=== PATIENT | male | born 1985 | race American Indian/Alaskan Native ===

== ENCOUNTER 2018-02-14 15:43 | Emergency (ER) | payer SELFPAY ==
[2018-02-14 15:52] VITALS: BP 137/81
[2018-02-14] MEDS ORDERED: TORADOL IM ONE (16:26)
[2018-02-14] MEDS ORDERED: ULTRAM PO ONE (16:26)
[2018-02-14] MEDS ORDERED: NORCO 5/325 PO ONE (16:28)
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
[2018-02-14 17:08] LABS: Bilirubin,Urine NEG (Negative); Blood,Urine NEG (Negative); Color,Urine Yellow (Yellow); Mucus,Urine FEW /HPF; Protein,Urine <15 mg/dL mg/dL (Negative); Urobilinogen,Urine < 2.0 mg/dL (<2.0)
[2018-02-14] MEDS ORDERED: ZITHROMAX PO ONE (17:15)
--- NOTE | 2018-02-14 17:30 | XRay Report ---
FINAL REPORT EXAM: XR CHEST ROUTINE 2V HISTORY: posterior left thoracic pain, cough TECHNIQUE: Frontal and lateral chest radiographs. PRIORS: None. FINDINGS: The cardiomediastinal silhouette is normal. A focal nodular opacity projects in the left lower lobe just above the left hemidiaphragm measuring 4.0 x 1.6 centimeters. Streaky linear opacities are seen radiating from this area. No pleural effusion. No pneumothorax. No acute osseous abnormality. IMPRESSION: Focal nodular opacity in the left lower lobe may represent focal pneumonia or pulmonary nodule. Recommend further evaluation with chest CT.
[2018-02-14] MEDS ORDERED: ROCEPHIN/NS 1 GM/50 ML 1 GM/50 ML BAG IV ONE (18:00)
[2018-02-14 18:28] LABS: Basophils # (Auto) 0.1 K/mm3 (0.0-0.1); Basophils % (Auto) 0.7 % (0.0-1.8); Eosinophils # (Auto) 0.5 K/mm3 (0.0-0.4); Eosinophils % (Auto) 5.9 % (0.0-4.3); Hematocrit 45.2 % (35.5-45.6); Hemoglobin 14.9 gm/dl (11.8-15.2); Lymphocytes # (Auto) 1.7 K/mm3 (1.2-5.4); Lymphocytes % (Auto) 19.3 % (13.4-35.0); Mean Corpuscular HGB Conc 33 % (32-34); Mean Corpuscular Hemoglobin 30 pg (28-32); Mean Corpuscular Volume 90 fl (84-94); Platelet Count 313 K/mm3 (140-440); Red Blood Count 5.05 M/mm3 (3.65-5.03); Red Cell Distribution Width 12.9 % (13.2-15.2)
[2018-02-14 18:38] LABS: BUN/Creatinine Ratio 11; Blood Urea Nitrogen 9 mg/dL (9-20); Calcium 8.9 mg/dL (8.4-10.2); Hemolysis Index 0
--- NOTE | 2018-02-14 19:29 | Cat Scan Report ---
FINAL REPORT PROCEDURE: CT chest with contrast. TECHNIQUE: Computerized axial tomography of the chest was performed during the IV injection of iodinated nonionic contrast. HISTORY: Pulmonary nodule versus infiltrate. COMPARISON: Chest radiographs done earlier today. Recommended additional evaluation. TECHNICAL QUALITY: Satisfactory. FINDINGS: The trachea and central bronchi appear normal. The right lung is clear and well expanded. There is patchy alveolar opacity in the basilar segments of the left lower lobe. This is consistent with acute pneumonia. Clinical correlation and follow-up imaging to document clearing is recommended. There are no definite nodules. There are no pleural effusions. There asymmetry in the thyroid with the left lobe being larger than the right. This could be better evaluated by ultrasound scanning. The thoracic aorta has a normal caliber. The central pulmonary arteries enhance normally. There is no mediastinal adenopathy. The heart size is normal. The adrenal glands are not enlarged. The thoracic skeleton appears intact. IMPRESSION: Left lower lobe pneumonia. No evidence of pulmonary nodules. Prominent left lobe of the thyroid.
== END 2018-02-14 20:04 | disposition home or self-care (01) ==
LOC: ED 15:43
DX: J18.1 Lobar pneumonia, unspecified organism (principal); M54.5 Low back pain; F17.200 Nicotine dependence, unspecified, uncomplicated; F12.10 Cannabis abuse, uncomplicated; Z91.013 Allergy to seafood
CPT/HCPCS: 36415; 71046; 71260; 80048; 81001; 85025; 87040; 96365; 96372; 99284; J0696; J1885

== ENCOUNTER 2018-10-16 11:26 | Emergency (ER) | payer OTHER ==
[2018-10-16 11:36] VITALS: BP 131/74
--- NOTE | 2018-10-16 11:36 | Emergency Department Report ---
Blank Doc - Documentation Documentation: This is a 33-year-old male that presents with 2 complaints: 1) URI symptoms and dental pain. This initial assessment/diagnostic orders/clinical plan/treatment(s) is/are subject to change based on patient's health status, clinical progression and re- assessment by fellow clinical providers in the ED. Further treatment and workup at subsequent clinical providers discretion. Patient/guardians urged not to elope from the ED as their condition may be serious if not clinically assessed and managed. Initial orders include: 1- Patient sent to [facility] for further evaluation and treatment 2- CXR
--- NOTE | 2018-10-16 11:56 | XRay Report ---
ROUTINE CHEST, TWO VIEWS: HISTORY: Cough. Compared to 02/14/18. The trachea, heart, mediastinal contour, lung shepard and bony thorax are unremarkable. IMPRESSION: Unremarkable chest x-ray.
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
== END 2018-10-16 12:30 | disposition home or self-care (01) ==
LOC: ED 11:26
DX: J20.9 Acute bronchitis, unspecified (principal); K04.7 Periapical abscess without sinus; K02.9 Dental caries, unspecified; Z87.891 Personal history of nicotine dependence; Z91.013 Allergy to seafood
CPT/HCPCS: 71046; 99283

== ENCOUNTER 2019-05-22 11:39 | Emergency (ER) | payer SELFPAY ==
--- NOTE | 2019-05-22 12:06 | Event Note ---
ED Screening Note ED Screening Note: This initial assessment/diagnostic orders/clinical plan/treatment(s) is/are subject to change based on patients health status, clinical progression and re- assessment by fellow clinical providers in the ED. Further treatment and workup at subsequent clinical providers discretion. Patient/guardian urged not to elope from the ED as their condition may be serious if not clinically assessed and managed. Initial orders include: 34yo BM states that he has a severe cough and worsening SOB x 1 week.
--- NOTE | 2019-05-22 12:33 | XRay Report ---
CHEST 2 VIEWS INDICATION / CLINICAL INFORMATION: Shortness of breath. COMPARISON: 10/16/2018 FINDINGS: SUPPORT DEVICES: None. HEART / MEDIASTINUM: No significant abnormality. LUNGS / PLEURA: No significant pulmonary or pleural abnormality. No pneumothorax. ADDITIONAL FINDINGS: No significant additional findings. IMPRESSION: 1. No acute findings. Signer Name: Shon Santana MD Signed: 05/22/2019 12:29 PM Workstation Name: [id number]
[2019-05-22] MEDS ORDERED: KETOROLAC 30 MG/1 ML INJ IM ONE (14:06)
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
[2019-05-22 14:32] LABS: Basophils % (Auto) 0.3 % (0.0-1.8); Eosinophils # (Auto) 0.1 K/mm3 (0.0-0.4); Hematocrit 43.4 % (35.5-45.6); Hemoglobin 14.5 gm/dl (11.8-15.2); Lymphocytes # (Auto) 1.4 K/mm3 (1.2-5.4); Lymphocytes % (Auto) 11.3 % (13.4-35.0); Mean Corpuscular HGB Conc 33 % (32-34); Mean Corpuscular Volume 92 fl (84-94); Monocytes # (Auto) 1.3 K/mm3 (0.0-0.8); Monocytes % (Auto) 10.6 % (0.0-7.3); Platelet Count 204 K/mm3 (140-440); Red Blood Count 4.71 M/mm3 (3.65-5.03); Red Cell Distribution Width 13.2 % (13.2-15.2)
[2019-05-22 14:45] LABS: Partial Thromboplastin Time 26.4 Sec. (24.2-36.6)
[2019-05-22 14:51] LABS: BUN/Creatinine Ratio 14; Blood Urea Nitrogen 10 mg/dL (9-20); Hemolysis Index 15
[2019-05-22 15:20] VITALS: BP 118/71
== END 2019-05-22 15:18 | disposition home or self-care (01) ==
LOC: ED 11:39
DX: R07.89 Other chest pain (principal); R06.02 Shortness of breath; R05 Cough; F17.200 Nicotine dependence, unspecified, uncomplicated
CPT/HCPCS: 36415; 71046; 80048; 85025; 85379; 85610; 85730; 96372; 99283; J1885

== ENCOUNTER 2019-09-06 08:57 | Emergency (ER) | payer SELFPAY ==
[2019-09-06] MEDS ORDERED: IBUPROFEN 800 MG TAB PO ONE (12:00)
[2019-09-06] MEDS ORDERED: BENZONATATE 100 MG CAP PO ONE (12:00)
--- NOTE | 2019-09-06 12:35 | XRay Report ---
CHEST 2 VIEWS INDICATION: cough. COMPARISON: 05/22/2019. FINDINGS: Support devices: None. Heart: Within normal limits. Lungs/Pleura: No acute air space or interstitial disease. No significant pleural effusion. IMPRESSION: No acute findings. Signer Name: Román Tim MD Signed: 09/06/2019 12:31 PM Workstation Name: [id number]
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
[2019-09-06 13:59] VITALS: BP 133/89
== END 2019-09-06 13:57 | disposition home or self-care (01) ==
LOC: ED 08:57
DX: J20.8 Acute bronchitis due to other specified organisms (principal); B97.89 Other viral agents as the cause of diseases classified elsewhere; F17.200 Nicotine dependence, unspecified, uncomplicated; Z86.69 Personal history of other diseases of the nervous system and sense organs; F12.90 Cannabis use, unspecified, uncomplicated; Z72.89 Other problems related to lifestyle; Z98.890 Other specified postprocedural states; Z91.013 Allergy to seafood
CPT/HCPCS: 71046; 87400; 99284

== ENCOUNTER 2019-12-06 18:53 | Emergency (ER) | payer SELFPAY ==
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
[2019-12-06 19:26] VITALS: BP 145/91
--- NOTE | 2019-12-06 20:17 | XRay Report ---
LEFT ANKLE RADIOGRAPH, 3 VIEWS INDICATION / CLINICAL INFORMATION: jumped a fence, left ankle pain COMPARISON: None available. FINDINGS: BONES / JOINT(S): No acute displaced fracture or subluxation. No significant arthritis. SOFT TISSUES: Mild soft tissue swelling about the ankle. ADDITIONAL FINDINGS: None. Signer Name: Skylar Escobar MD Signed: 12/06/2019 8:13 PM Workstation Name: [email or web address]
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
== END 2019-12-06 20:15 | disposition left against medical advice (07) ==
LOC: ED 18:53
DX: M79.605 Pain in left leg (principal); Z53.21 Procedure and treatment not carried out due to patient leaving prior to being seen by health care provider

== ENCOUNTER 2020-10-05 17:11 | Emergency (ER) | payer SELFPAY ==
[2020-10-05 19:41] VITALS: BP 142/93
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
== END 2020-10-05 22:15 | disposition left against medical advice (07) ==
LOC: ED 17:11
DX: S21.151A Open bite of right front wall of thorax without penetration into thoracic cavity, initial encounter (principal); G40.909 Epilepsy, unspecified, not intractable, without status epilepticus; Z87.891 Personal history of nicotine dependence; Z79.899 Other long term (current) drug therapy; Z88.8 Allergy status to other drugs, medicaments and biological substances; W54.0XXA Bitten by dog, initial encounter; Y93.89 Activity, other specified; Y92.89 Other specified places as the place of occurrence of the external cause; Y99.8 Other external cause status
CPT/HCPCS: 99282